=== PATIENT | female | born 1985 | race Caucasian/White ===

== ENCOUNTER 2016-07-27 05:40 | Inpatient (IN) | payer OTHER ==
[2016-07-27] MEDS ORDERED: BUTORPHANOL TARTRATE 1 MG/ML VIAL IVPB ONE (06:36)
[2016-07-27] MEDS ORDERED: SODIUM PHOSPHATE/NA BIPHOS 133 ML ENEMA PR ONE (06:39)
[2016-07-27] MEDS ORDERED: DEXTROSE 5%-LACTATED RINGERS 1,000 ML IV SCH (06:45)
--- NOTE | 2016-07-27 06:48 | HP ---
Past Medical History - Primary Care Physician PCP:: Gill Little - Admission Chief Complaint: 30 yrs , 39.4/7 weeks IUP , c/o SROM since 3.40 am , onset LP since 4.00am History of Present Illness: PNC at , [facility] . Late registrant at 21 weeks gestation wt gain 43 lbs work Up O pos, , GBS neg, Hbsag neg, Rpr nr, Rubella pos, Hiv neg, Quantiferon neg, , pngt 92 , gc/ct neg Sono NT screen & Quad screen not done sono by [facility] reviewed History Source: Patient, Medical Record - Past Medical History DOG BOARDER: No: Migraine, Seizure Cardiovascular: No: HTN Pulmonary: No: Asthma Gastrointestinal: No: Constipation Hepatobiliary: No: Hepatitis B Renal/: No: UTI ...: 3 ...Para: 2 ...LMP: 11/12/15 ... Weeks Gestation by Dates: 37 ...EDC by Dates: 08/18/16 (Mistaken dates ) ...EDC by Sono: 07/30/16 (39.4/7 weeks ) Additional OB History: G1 10/20/2007 7'9" [facility]. G2 10/17/2014 6'2 " [facility] Heme/Onc: Yes: Anemia Infectious Disease: No: AIDS, HIV, MRSA, STD's, Tuberculosis Psych: No: Addictions, Bipolar, Depression Endocrine: No: Diabetes Insipidus, Diabetes Mellitus, Hypothyroidism - Past Surgical History Past Surgical History: Yes: None Hx Myomectomy: No Hx Transabdominal Cerclage: No - Smoking History Smoking history: Never smoked Have you smoked in the past 12 months: No - Alcohol/Substance Use Hx Alcohol Use: No History of Substance Use: reports: None - Social History History of Recent Travel: No Home Medications - Allergies Allergies/Adverse Reactions: Allergies Allergy/AdvReac Type Severity Reaction Status Date / Time No Known Allergies Allergy Verified 07/27/16 11:36 - Home Medications Home Medications: Ambulatory Orders Plus Iron Tablet 1 tab PO DAILY 07/27/16 Physical Exam - Maternity Vital Signs: Vital Signs Temperature 98.2 F 07/27/16 06:13 Pulse Rate 62 07/27/16 06:13 Respiratory Rate 20 07/27/16 06:13 Blood Pressure 118/64 07/27/16 06:13 O2 Sat by Pulse Oximetry (%) Constitutional: Yes: Well Nourished, No Distress Eyes: Yes: WNL HENT: Yes: WNL, Normocephalic Neck: Yes: WNL Cardiovascular: Yes: WNL, Regular Rate and Rhythm Lungs: Clear to auscultation Breast(s): Yes: WNL - Abdominal Exam/OB Fundal Height: 38 Number of Fetuses: Single Presentation: Vertex Contractions: Yes Regularity: Irregular (2-7-8 min) Intensity: Mild Monitor Mode: External Heart Rate (range): 130 Heart Rate Location: [facility] Category: I Accelerations: Uniform Decelerations: None - Vaginal Exam/OB Vaginal Bleediing: No Speculum Exam: No Dilatation (cm): 2 Effacement (%): 60 Amniotic Membrane Status: Ruptured Nitrazine Test: Positive Amniotic Fluid: Yes: Clear Presentation: Vertex/Position Station: -3 - Physical Exam Musculoskeletal: Yes: WNL Extremities: Yes: WNL. No: Calf Tenderness Edema: Yes Edema: LLE: 1+, RLE: 1+ Integumentary: Yes: WNL Deep Tendon Reflex Grade: Normal +2 ...Motor Strength: WNL Psychiatric: Yes: WNL, Alert, Oriented - Labs Lab Results: Laboratory Tests 07/27/16 07/27/16 07/27/16 06:40 06:40 06:40 WBC 10.7 H RBC 4.04 Hgb 11.7 Hct 34.5 MCV 85.4 MCHC 34.0 Plt Count 227 Neutrophils % 74.8 Lymphocytes % 18.8 D Monocytes % 5.7 Eosinophils % 0.4 INR 0.90 PTT (Actin FS) 25.2 L Sodium 140 Potassium 3.8 Chloride 105 Carbon Dioxide 22 BUN 8 Creatinine 0.5 L Random Glucose 78 Calcium 8.3 L RPR Titer 07/27/16 06:40 WBC RBC Hgb Hct MCV MCHC Plt Count Neutrophils % Lymphocytes % Monocytes % Eosinophils % INR PTT (Actin FS) Sodium Potassium Chloride Carbon Dioxide BUN Creatinine Random Glucose Calcium RPR Titer Nonreactive Problem List - Problems (1) with 39 completed weeks gestation Code(s): Z3A.39 - 39 WEEKS GESTATION OF (2) SROM (spontaneous rupture of membranes) Code(s): LZC9987 - Assessment/Plan 30 Yrs , 39.4/7 weeks srom, irregular uc , 2-7 min gbs neg Plan Fleets enema,shower Pitocin Augmentation vaginal delivery trial
[2016-07-27 07:04] VITALS: BMI 27.4
[2016-07-27] MEDS ORDERED: OXYTOCIN 15 UNITS/ LR 250 ML 250 ML IVPB SCH (07:30)
[2016-07-27 07:37] LABS: BASOPHIL 0.3 % (0-2.0); EOSINOPHIL 0.4 % (0-4.5); MEAN CELL VOLUME 85.4 fl (80-96); MEAN PLT VOLUME 8.7 fl (7.5-11.1); NEUTROPHILS 74.8 % (42.8-82.8); PLATELET COUNT 227 K/MM3 (134-434); RDW 17.2 % (11.6-15.6); WHITE BLOOD COUNT 10.7 K/mm3 (4.0-10.0)
[2016-07-27 07:55] LABS: CALCIUM 8.3 mg/dL (8.5-10.1); COCKROFT - GAULT 185.9205; CREATININE 0.5 mg/dL (0.55-1.02)
[2016-07-27 08:10] LABS: INR 0.9 (0.82-1.09); PROTHROMBIN TIME (PATIENT) 9.9 SEC (9.98-11.88)
[2016-07-27 08:13] LABS: ACTIVATED PTT 25.2 SECONDS (26.9-34.4)
[2016-07-27] MEDS ORDERED: D5W-LR W/ 20 UNITS OXYTOCIN 1,000 ML IV SCH (11:56)
--- NOTE | 2016-07-27 12:15 | PN ---
Progress Note, Labor Vaginal Exam #1 Labor Exam Date: 07/27/16 Labor Exam Time: 11:44 Heart Rate (range): 130 Dilatation: 10 Effacement (%): 100 Amniotic Membrane Status: Ruptured Presentation: Vertex/Position Station: +3 Remarks: fhr cat-1 UC q2 min pt pushing Pitocin Augmentation was started at 9.30 am Selected Entries 07/27/16 07/27/16 10:00 11:00 Temperature 97.9 F Pulse Rate 74 74 Blood Pressure 122/75 120/68
[2016-07-27] MEDS ORDERED: BENZOCAINE 28 GM HEMORRHOIDAL OINTMENT TP PRN (12:16)
[2016-07-27] MEDS ORDERED: BENZOCAINE 20% 57 GM BOTTLE TP PRN (12:16)
[2016-07-27] MEDS ORDERED: WITCH HAZEL 50% (TUCKS) 40 PAD/JAR PAD TP PRN (12:16)
[2016-07-27] MEDS ORDERED: BISACODYL 10 MG SUPP.RECT RC PRN (12:16)
[2016-07-27] MEDS ORDERED: oxyCODONE HCL 5 MG TABLET PO PRN (12:16)
[2016-07-27] MEDS ORDERED: METHYLERGONOVINE MALEATE 0.2 MG/1 ML AMP IM PRN (12:16)
--- NOTE | 2016-07-27 12:26 | PN ---
Delivery - Delivery Vaginal Delivery: No Problems, Spontaneous EBL (cc): 250 Delivery, Single - Stages of Labor Date 1st Stage Initiatied: 07/27/16 Time 1st Stage Initiated: 04:00 Date 2nd Stage Initiated: 07/27/16 Time 2nd Stage Initiated: 11:44 Date of Delivery: 07/27/16 Time of Delivery: 11:53 Date Placenta Delivered: 07/27/16 Time Placenta Delivered: 11:56 Placenta: Yes: Spontaneous, Uterine Exploration - Condition of Water Use Inspector/School Psychology Professor Present: No Gender: Male Weight: 6 lb 5 oz Position: Left, OA Total Hours ROM (Hrs/Mins): 8hrs 16 min - 1 Minute Total Score: 9 5 Minutes Total Score: 9 - [place] Feeding Plan Initial Plan: Elected not to breastfeed exclusively throughout hospitalization Remarks - Remarks Remarks: 30 yrs , 39.4 weeks gestation , GBS neg, admitted in labor, SROM pnc at [address] [place] [address] Pitocin augmentation was started Intrapartum course was uneventful
[2016-07-27] MEDS: IBUPROFEN 600 MG TABLET (FP) PO PRN (12:40)
[2016-07-27] MEDS: ACETAMINOPHEN 325 MG TABLET (FP) PO PRN (12:48)
[2016-07-27] MEDS: FERROUS SO4 325 MG TABLET (FP) PO SCH (16:45)
--- NOTE | 2016-07-28 05:50 | PN ---
Post Progress Note Post Day: 1 Type of Delivery: Vital Signs: Vital Signs Temperature 98.2 F 07/28/16 02:00 Pulse Rate 62 07/28/16 02:00 Respiratory Rate 18 07/28/16 02:00 Blood Pressure 113/77 07/28/16 02:00 O2 Sat by Pulse Oximetry (%) 98 07/27/16 12:45 Breast Exam: Yes: Soft Uterus: Yes: Fundus Firm Abdomen/GI: Yes: Abdomen soft Lochia: Yes: Rubra Lochia, amount: Small Extremities: Yes: Calves non-tender Perineum: Yes: Intact Activity: Ambulating - Labs Labs: CBC WBC 10.7 K/mm3 (4.0-10.0) H 07/27/16 06:40 RBC 4.04 M/mm3 (3.60-5.2) 07/27/16 06:40 Hgb 11.7 GM/dL (10.7-15.3) 07/27/16 06:40 Hct 34.5 % (32.4-45.2) 07/27/16 06:40 MCV 85.4 fl (80-96) 07/27/16 06:40 MCHC 34.0 g/dl (32.0-36.0) 07/27/16 06:40 RDW 17.2 % (11.6-15.6) H 07/27/16 06:40 Plt Count 227 K/MM3 (134-434) 07/27/16 06:40 MPV 8.7 fl (7.5-11.1) D 07/27/16 06:40 Neutrophils % 74.8 % (42.8-82.8) 07/27/16 06:40 Lymphocytes % 18.8 % (8-40) D 07/27/16 06:40 Monocytes % 5.7 % (3.8-10.2) 07/27/16 06:40 Eosinophils % 0.4 % (0-4.5) 07/27/16 06:40 Basophils % 0.3 % (0-2.0) 07/27/16 06:40 Assessment/Plan as above reg diet check labs
[2016-07-28 07:10] LABS: BASOPHIL 0.3 % (0-2.0); EOSINOPHIL 0.6 % (0-4.5); MCH 28.5 pg (25.7-33.7); MCHC 33.3 g/dl (32.0-36.0); MEAN CELL VOLUME 85.7 fl (80-96); MEAN PLT VOLUME 8.7 fl (7.5-11.1); NEUTROPHILS 69.4 % (42.8-82.8); PLATELET COUNT 210 K/MM3 (134-434); RDW 17.7 % (11.6-15.6); WHITE BLOOD COUNT 11.3 K/mm3 (4.0-10.0)
[2016-07-28] MEDS: ACETAMINOPHEN 325 MG TABLET (FP) PO PRN (08:33)
[2016-07-28] MEDS: FERROUS SO4 325 MG TABLET (FP) PO SCH ×2 (08:33→17:15)
[2016-07-28] MEDS: IBUPROFEN 600 MG TABLET (FP) PO PRN (08:35)
[2016-07-28] MEDS: PRENATAL VITAMINS W/ FOLIC ACID TABLET (FP) PO SCH (10:23)
--- NOTE | 2016-07-28 14:20 | DS ---
Physical Exam-[employer] Vital Signs: Vital Signs Temperature 98.9 F 07/28/16 09:19 Pulse Rate 64 07/28/16 09:19 Respiratory Rate 17 07/28/16 09:19 Blood Pressure 115/63 07/28/16 09:19 O2 Sat by Pulse Oximetry (%) 98 07/27/16 12:45 Constitutional: Yes: Well Nourished Eyes: Yes: WNL HENT: Yes: WNL Neck: Yes: WNL Cardiovascular: Yes: WNL Respiratory: Yes: WNL Gastrointestinal: Yes: WNL ...Rectal Exam: Yes: WNL Renal/: Yes: WNL ....Post : Yes: Uterus firm, Uterus non-tender, Moderate lochia rubra Breast(s): Yes: WNL (BF) Musculoskeletal: Yes: WNL Extremities: Yes: WNL Edema: Yes Edema: LLE: Trace, RLE: Trace Neurological: Yes: WNL, Alert, Oriented ...Motor Strength: WNL Psychiatric: Yes: WNL Labs: CBC, BMP 07/28/16 06:35 07/27/16 06:40 Delivery - Delivery Vaginal Delivery: No Problems, Spontaneous Type of Anesthesia: None Episiotomy/Laceration: None EBL (cc): 250 Delivery, Single - Stages of Labor Date 1st Stage Initiatied: 07/27/16 Time 1st Stage Initiated: 04:00 Date 2nd Stage Initiated: 07/27/16 Time 2nd Stage Initiated: 11:44 Date of Delivery: 07/27/16 Time of Delivery: 11:53 Time Placenta Delivered: 11:56 Placenta: Yes: Spontaneous, Uterine Exploration - Condition of Mechanic Chief/Inspector Tubes Present: No Gender: Male Weight: 6 lb 5 oz Position: Left, OA Total Hours ROM (Hrs/Mins): 8hrs 16 min - 1 Minute Total Score: 9 5 Minutes Total Score: 9 - [place] Feeding Plan Initial Plan: Elected not to breastfeed exclusively throughout hospitalization Remarks - Remarks Remarks: 30 yrs , 39.4 weeks gestation , GBS neg, admitted in labor, SROM pnc at 2[facility] Pitocin augmentation was started Intrapartum course was uneventful pp course uneventful discharge 07/29/16 Discharge Summary Current Active Problems Normal spontaneous vaginal delivery (Acute) with 39 completed weeks gestation (Acute) SROM (spontaneous rupture of membranes) (Acute) Condition: Stable - Instructions Diet, Activity, Other Instructions: Post Instructions DIET: Continue good diet high in protein, calcium, and iron rich foods. Drink at least eight (8) glasses of water daily in addition to other fluids. ct Regular diet MEDICATIONS: Continue vitamins and iron as previously directed. Motrin and Tylenol may be taken for minor discomfort. ACTIVITY: Mild to moderate exercise may be started in two (2) weeks. Take frequent rest periods. Resume normal activity after six (6) week check up. WOUND CARE OF OPERATIVE SITE: Continue use of perineal bottle until vaginal discharge stops. Keep area clean. Shower daily. Keep abdominal wound dry. Report any drainage or redness to physician. Tub baths, tampons and douches are not permitted for [address] Breast feeding & or Bottle feeding BREAST CARE: (For those that are not breast feeding): If engorgement occurs: Wear tight fitting bra. Take Tylenol or Motrin for pain. Apply cold packs (ice in bags to each breast ) FAMILY PLANNING: There are many control alternatives to pursue and they should be discussed at your first office visit. You may resume sexual activity after your six (6) week check up. (Remember, breast feeding is not a contraceptive) NEXT PHYSICIAN APPOINTMENT: Be certain to call for a six (6) week appointment, unless otherwise directed. Call Clinic or got to Emergency Dept if you have any of the following: Heavy vaginal bleeding Painful urination Leg pain Unusual odor noted to vaginal bleeding High fever Red streaking noted on breast Referrals: Gill Little MD [Staff Physician] - Disposition: HOME - Home Medications Comprehensive Discharge Medication List: Ambulatory Orders Plus Iron Tablet 1 tab PO DAILY 07/27/16 Acetaminophen [Tylenol .Regular Strength -] 650 mg PO Q3H PRN #0 tablet Ibuprofen [Motrin -] 200 mg PO Q4H PRN #0 tablet 07/28/16 Vitamins ([facility]) - 1 tab PO DAILY #30 tablet 07/28/16
[2016-07-28] MEDS ORDERED: SENNOSIDES/DOCUSATE COMBO (SENNA PLUS) TABLET (UD) PO PRN (22:00)
--- NOTE | 2016-07-29 07:17 | PN ---
Progress Note (short form) - Note Progress Note: ppd no c/o ,no excess vaginal bleeding CBC, BMP 07/28/16 06:35 07/27/16 06:40 Last Vital Signs Temp Pulse Resp BP Pulse Ox 98.0 F 76 18 101/56 98 07/28/16 22:00 07/28/16 22:00 07/28/16 22:00 07/28/16 22:00 07/27/16 12:45 uterus firm, non tender lochia mild plan d/c home . rtc 4 weeks
[2016-07-29] MEDS: FERROUS SO4 325 MG TABLET (FP) PO SCH (08:00)
[2016-07-29 08:30] VITALS: BP 111/58; PULSE 72; TEMP 98.1
[2016-07-29] MEDS: IBUPROFEN 600 MG TABLET (FP) PO PRN (08:35)
[2016-07-29] MEDS: ACETAMINOPHEN 325 MG TABLET (FP) PO PRN (08:35)
[2016-07-29] MEDS: PRENATAL VITAMINS W/ FOLIC ACID TABLET (FP) PO SCH (10:00)
== END 2016-07-29 13:20 | disposition home or self-care (01) | DRG 560 ==
LOC: JLDR 05:40 → J3W 15:52
PROVIDERS: ADMIT Obstetrics & Gynecology; ATTEND Obstetrics & Gynecology
PROC: 10E0XZZ Delivery of Products of Conception, External Approach (ICD-10-PCS; principal; 2016-07-27)
DX: O80 Encounter for full-term uncomplicated delivery (principal); Z3A.39 39 weeks gestation of pregnancy; Z37.0 Single live birth
CPT/HCPCS: 36415; 59409; 80048; 85025; 85610; 85730; 86593; 86850; 86900; 86901